=== PATIENT | male | born 1980 ===

== ENCOUNTER 2024-11-25 14:57 | Emergency (ER) | payer OTHER, SELFPAY ==
[2024-11-25 15:00] VITALS: BP 163/101
--- NOTE | 2024-11-25 16:31 | ED.GENMED ---
History of Present Illness
General
Chief Complaint: Facial Problem
Source: patient
Time Seen by Provider: 11/25/24 16:11
History of Present Illness
History of Present Illness:
43-year-old male with past medical history of GERD presenting to the emergency department for evaluation after noticing an inability to spit out of the left side of his mouth while brushing his teeth earlier this morning, yesterday did start to feel
little odd sensation to the left side of his face but did not think much of it. Patient also notes 2 weeks ago he started with bilateral upper back pain and an odd sensation on the left side of his head described to be as if his hair were burning
when touched with all of the symptoms now resolved and the only symptoms patient notes is feeling as if the left side of his face is not properly. Patient does state he cannot close his left eye fully or raise his left eyebrow up as high as the
right side. No chest pain no shortness of breath. Patient does note recent travel to [place] where he was hiking and camping but no known bites or rashes or fevers.
Past History
Past History
ED Past Medical History: GERD
ED Past Surgical History: None
Social History
Tobacco: Non-smoker
Alcohol: Occasional
Drug: None
Personal:
Living: with family
Employment: Employed
Review of Systems
Review of Systems
All Other Systems: ROS reviewed and negative except as documented in HPI and ROS
Phy Exam
Physical Exam
Physical Exam:
GENERAL: Alert , in no apparent distress
EYE: conjunctiva clear
NECK: Supple, no significant adenopathy.
ENT: o/p clr, mmm.
CARDIAC: Regular rate and rhythm
LUNGS: Clear breath sounds bilaterally, no acute respiratory distress, no wheezes/rales/rhonchi
NEUROLOGICAL: Alert and oriented x 3. Mild paralysis of the left side of the face extending from the forehead down through the mouth. Moves all extremities x 4. No other focal neurologic deficit
SKIN: Warm and dry, skin intact.
MUSCULOSKELETAL: well perfused.
PSYCH: Normal and appropriate interaction.
Scores
NIH Stroke Score
Level of Consciousness: 0 - Alert
LOC Questions: 0-Answers both correctly
LOC Commands: 0-Performs both correctly
Best Horizontal Gaze: 0-Normal
Visual Elena: 0=Normal, no visual loss
Facial Palsy: 1=Minor paralysis
Motor - Right Arm: 0=No drift 10 seconds
Motor - Left Arm: 0=No drift 10 seconds
Motor - Right Le-No drift 5 seconds
Motor - Left Le-No drift 5 seconds
Limb Ataxia: 0-Absent
Sensation: 0-Normal
Best Language: 0-No aphasia
Dysarthria: 1-Mild slurring
Extinction and Inattention: 0-No abnormality
NIH Total Score:: 2
Heart Failure Risk
Heart Failure Risk Score: Not Applicable
Heart Score for Chest Pain Patients
STEMI patient?: Not applicable
Withdrawal Assessment of Alcohol
Withdrawal Assessment Completed?: Not applicable
Course
Orders/Labs/Results
Orders:
Orders
11/25/24 16:45
Lyme Progressive Urgent
Blood Parasites Urgent
MARY ANN Source: Blood/Venous
Specimen Description:
Vital Signs
Initial and Last Documented VS:
Initial Vital Signs
Temp Pulse Resp BP Pulse Ox
98.2 F 117 18 163/101 98
11/25/24 15:00 11/25/24 15:00 11/25/24 15:00 11/25/24 15:00 11/25/24 15:00
Last Documented Vital Signs
Temp Pulse Resp BP Pulse Ox
98.5 F 98 16 158/97 99
11/25/24 15:00 11/25/24 16:47 11/25/24 16:47 11/25/24 16:47 11/25/24 16:47
MDM/Problems Addressed
Differential Diagnosis Includes:
- Andrews's palsy
- Stroke
- Giant cell arteritis
- Shingles
- Lyme's or other tickborne illness
- Atypical migraine
- Aneurysm
MDM/Problems Addressed:
43-year-old male presenting to the ER for evaluation of left-sided facial paralysis over the last 2 days, patient did have some prodromal symptoms over the last 1 to 2 weeks. Due to the upper back pain his primary care did give him a very
short-term prednisone taper which patient took and states that while the pain has improved he still feels it slightly. Based off presentation and the entirety of the left side of his face showing the facial paralysis I suspect Andrews's palsy is the
most likely diagnosis. Will check a Lyme titer as well as a tickborne illness panel given patient's recent hiking/camping trip. I discussed with patient about possibly empirically starting him on doxycycline however patient declines. Will start
him on 7-day course of prednisone. Patient to follow-up with primary care provider. Aware of return precautions.
*Pulse Oximetry
SaO2: 98
Oxygen Mode of Delivery: Room air
Patient hypoxic: no
*Critical Care Note
Total Time (30-74mins, 75-104mins- exclusive of procedures): Not Applicable
ED Attending Note
-
Portions of this chart may have been created with voice recognition software.� Occasional wrong word or��sound alike� substitutions may have occurred due to the inherent limitations of voice recognition software.
Discharge Plan
Departure
Patient Disposition: Home (Routine Discharge)
Date of Disposition: 11/25/24
Time of Disposition: 16:31
Patient with high blood pressure during this ER visit?: Yes
Discharge Problem:
Andrews's palsy
Instructions: Andrews's Palsy (DC)
Prescriptions:
New
prednisone 20 mg tablet
60 mg PO DAILY 7 Days Qty: 21 0RF
Referrals:
UNKNOWN - PT NOT,INTERVIEWE [Family Provider]
Interventions
Interventions:
*Risk Screen - Suicide Last Done: 11/25/24 16:21
*General Assessment Last Done: 11/25/24 16:20
*Neglect/Abuse Screening Last Done: 11/25/24 16:21
*ED- Fall Risk Assessment Last Done: 11/25/24 16:20
*ED COVID-19 Vaccine History Last Done: 11/25/24 15:00
*Nursing Disposition Last Done: 11/25/24 16:47
ED- Neurological Assessment Last Done: 11/25/24 16:25
ED-Skin Assessment Last Done: 11/25/24 16:20
Discharge Date and Time
Discharge Date/Time: 11/25/24 16:48
Print Language: YORUBA
[2024-11-25 16:47] VITALS: BP 158/97
[2024-11-30 13:59] LABS: Lyme Antibody Screen, EIA Presump. Positive (Negative)
== END 2024-11-25 16:48 | disposition home or self-care (01) ==
LOC: EMR 14:57
PROVIDERS: Physician Assistant Medical; EMERGENCY PHYSICIAN Student in an Organized Health Care Education/Training Program
DX: G51.0 Bell's palsy (principal); R03.0 Elevated blood-pressure reading, without diagnosis of hypertension; K21.9 Gastro-esophageal reflux disease without esophagitis; M54.6 Pain in thoracic spine
CPT/HCPCS: 99283; 86617; 86618; 87015; 87207